=== PATIENT | female | born 1995 | race Caucasian/White ===

== ENCOUNTER → 2018-03-28 | Outpatient (CLI) | payer OTHER, BC ==
[~2018-03-28] MED LIST: FUROSEMIDE INJ 10 MG/ML 4 ML VIAL ONE
--- NOTE | 2018-03-28 18:10 | Diagnostic Imaging Report ---
Renal Scan with Lasix Washout Clinical information: 23 F with tubulointerstitial nephritis; history of multiple UTIs. Technique: Following intravenous administration of 11 mCi of Tc-99m MAG3, dynamic images of the kidneys in the posterior projection were obtained through 34 minutes. Lasix 40 mg was administered intravenously at 13 minutes post injection of the tracer. Report: Left kidney: Perfusion of the left kidney is prompt. The kidney has a normal reniform shape. Extraction of tracer from the blood pool is normal. Clearance of tracer from the renal parenchyma is prompt. The pelvicalyceal system is not dilated. Physiologic pooling of tracer is seen within the pelvicalyceal system. Drainage of tracer from the pelvicalyceal system is prompt and adequate prior to administration of Lasix. No significant stasis of tracer is seen within the left ureter. Right kidney: Perfusion to the right kidney is prompt. The right kidney has a reniform shape. The right kidney is slightly smaller than the left kidney. Extraction of tracer by the renal parenchyma is normal. Clearance of tracer from the renal parenchyma is prompt. The pelvicalyceal system is very dilated. Increased pooling of tracer is seen within the pelvicalyceal system. Drainage of tracer from the pelvicalyceal system is prompt and adequate prior to administration of Lasix. No significant stasis of tracer is seen within the right ureter. Differential renal function: The left kidney contributes 54% of total renal function and the right kidney contributes 46% (normal 43-57%). Impression: 1. The function of the left kidney is generally normal. No hydronephrosis is present. No physiologically significant obstruction of the renal collecting system is present. 2. The function of the right kidney is generally normal. The slightly smaller size of the right kidney accounts for the differential function of 46%. No cortical scarring is present. Very mild hydronephrosis is present. No physiologically significant obstruction of the renal collecting system is present. 3. The differential renal function is preserved. Signed by: Dr. Simin Walton M.D. on 03/28/2018 6:06 PM
== END ==
LOC: NM 09:48
PROVIDERS: ATTEND Urology
DX: N12 Tubulo-interstitial nephritis, not specified as acute or chronic (principal); N39.0 Urinary tract infection, site not specified
CPT/HCPCS: 78708; 81025; A9562; J1940

== ENCOUNTER → 2018-12-08 | Outpatient (CLI) | payer OTHER ==
--- NOTE | 2018-12-09 13:33 | Diagnostic Imaging Report ---
Scan with Lasix Washout Clinical information: Hydronephrosis; acute pyelonephritis Comparison: Prior Renal Scan with Lasix Washout 03/28/2018 Technique: Following intravenous administration of 10 mCi of Tc-99m MAG3, dynamic images of the kidneys in the posterior projection were obtained through 40 minutes. Lasix 40 mg was administered intravenously at 10 minutes post injection of the tracer. Report: Left kidney: Perfusion of the left kidney is prompt. The kidney has a normal reniform shape. Extraction of tracer from the blood pool is normal. Clearance of tracer from the renal parenchyma is prompt. The pelvicalyceal system is not dilated. Physiologic pooling of tracer is seen within the pelvicalyceal system. Drainage of tracer from the pelvicalyceal system is prompt and adequate prior to administration of Lasix. No significant stasis of tracer is seen within the left ureter. Right kidney: Perfusion to the right kidney is prompt. The right kidney has a reniform shape but is smaller than the left kidney.. Extraction of tracer by the renal parenchyma is normal. Clearance of tracer from the renal parenchyma is prompt. The pelvicalyceal system is mildly dilated. Increased pooling of tracer is seen within the pelvicalyceal system. Some drainage of tracer from the pelvicalyceal system is seen prior to administration of Lasix. Washout of tracer from the pelvicalyceal system following administration of Lasix is very rapid with a T-1/2 of 3 minutes (normal less than 15 minutes). No significant stasis of tracer is seen within the right ureter. Differential renal function: The left kidney contributes 56% of total renal function and the right kidney contributes 44% (normal 43-57%), previously left 54% and right 46%. Impression: 1. The function of the left kidney is generally normal. No hydronephrosis is present. No physiologically significant obstruction of the renal collecting system is present. The appearance of the kidney and its drainage pattern are unchanged compared to the prior renal scan of 03/28/2018. 2. The function of the right kidney is generally normal. The slightly smaller size of the right kidney accounts for the differential function of 44%. No cortical scarring is present. Mild hydronephrosis is present. No physiologically significant obstruction of the renal collecting system is present. The appearance of the kidney is unchanged from the prior study. The drainage/washout pattern is slightly different but only reflects hydration status. The differential function of 44% is not statistically changed from the prior differential function of 46% on the prior study. Signed by: Dr. Simin Walton M.D. on 12/09/2018 1:29 PM
== END ==
LOC: NM 12:42
PROVIDERS: ATTEND Urology
DX: N10 Acute pyelonephritis (principal); N13.30 Unspecified hydronephrosis
CPT/HCPCS: 78708; 81025; A9562; J1940

== ENCOUNTER → 2019-07-13 | Outpatient (CLI) | payer OTHER ==
--- NOTE | 2019-07-13 15:54 | Diagnostic Imaging Report ---
EXAM: Renal Ultrasound INDICATION: ^[id number] ^[id number] ^HYDRONEPHROSIS COMPARISON: None TECHNIQUE: Transverse and longitudinal images of the kidneys and bladder were obtained. FINDINGS: Right Kidney: Length: 8.9 cm Appearance: Normal echogenicity. Collecting system: No hydronephrosis Stones: None Cyst/Mass: None Left Kidney: Length: 10.3 cm Appearance: Normal echogenicity. Collecting system: No hydronephrosis Stones: None Cyst/Mass: None Bladder: No mass or calculi. Bilateral ureteral jets visualized. Prevoid volume estimate of 303 cc. Postvoid volume estimate of 26 cc. IMPRESSION: No renal calculi or hydronephrosis. Pre and post void bladder volume estimates as above. Signed by: Bean Ventura MD on 07/13/2019 3:51 PM
== END ==
LOC: US 14:49
PROVIDERS: ATTEND Urology
DX: N13.30 Unspecified hydronephrosis (principal)
CPT/HCPCS: 76770; 76857

== ENCOUNTER → 2019-12-28 | Outpatient (CLI) | payer OTHER ==
--- NOTE | 2019-12-28 18:28 | Diagnostic Imaging Report ---
Renal Scan with Lasix Washout Clinical information: Unspecified hydronephrosis Comparison: Most recent prior renal scan with Lasix of 12/08/2018 Technique: Following intravenous administration of 10 mCi of Tc-99m MAG3, dynamic images of the kidneys in the posterior projection were obtained through 40 minutes. Lasix 40 mg was administered intravenously at 10 minutes post injection of the tracer. Report: Left kidney: Perfusion of the left kidney is prompt. The kidney has a normal reniform shape. Extraction of tracer from the blood pool is normal. Clearance of tracer from the renal parenchyma is prompt. The pelvicalyceal system is not dilated although a prominent calyx is seen in the upper pole. Increased pooling of tracer is seen within the upper pole calyx. Drainage of tracer from the pelvicalyceal system is prompt and adequate prior to administration of Lasix. No significant stasis of tracer is seen within the left ureter. Right kidney: Perfusion to the right kidney is prompt. The right kidney has a normal reniform shape. The right kidney is slightly smaller than the left kidney. Extraction of tracer by the renal parenchyma is normal. Clearance of tracer from the renal parenchyma is prompt. The pelvicalyceal system is very mildly dilated. Minimally increased pooling of tracer is seen within the pelvicalyceal system. Drainage of tracer from the pelvicalyceal system is prompt and adequate prior to administration of Lasix. No significant stasis of tracer is seen within the right ureter. Differential renal function: The left kidney contributes 55% of total renal function and the right kidney contributes 45% (normal 43-57%), previously left 56% and right 44%. Impression: 1. The function of the left kidney is generally normal. No hydronephrosis is present. No physiologically significant obstruction of the renal collecting system is present. The appearance of the kidney and the drainage pattern are unchanged compared to the prior renal scan with Lasix of . 2. The function of the right kidney is generally normal. Very mild hydronephrosis is present. No physiologically significant obstruction of the renal collecting system is present. The appearance of the kidney and the drainage pattern are unchanged compared to the prior renal scan with Lasix of . 3. The differential renal function is preserved. Signed by: Dr. Simin Walton M.D. on 12/28/2019 6:25 PM
== END ==
LOC: NM 07:20
PROVIDERS: ATTEND Urology
DX: N13.30 Unspecified hydronephrosis (principal)
CPT/HCPCS: 78708; 81025; A9562; J1940

== ENCOUNTER → 2020-08-21 | Outpatient (CLI) | payer OTHER | LOC: NM 11:59 | PROVIDERS: ATTEND Urology | DX: N13.30 Unspecified hydronephrosis (principal); Z87.440 Personal history of urinary (tract) infections | CPT/HCPCS: 78708; 81025; A9562; J1940 ==